=== PATIENT | female | born 1970 | race Caucasian/White ===

== ENCOUNTER 2019-09-27 11:32 | Emergency (ER) | payer SELFPAY ==
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
[2019-09-27] MEDS ORDERED: Iopamidol 755 Mg/ML 100 ML Bottle IVPUSH ONE (16:33)
== END 2019-09-27 14:53 | disposition home or self-care (01) ==
LOC: MW.ED 11:32
DX: S20.222A Contusion of left back wall of thorax, initial encounter (principal); S20.212A Contusion of left front wall of thorax, initial encounter; S90.31XA Contusion of right foot, initial encounter; V29.9XXA Motorcycle rider (driver) (passenger) injured in unspecified traffic accident, initial encounter
CPT/HCPCS: 71260; 72128; 73590; 73600; 73620; 99284; Q9967; 99283

== ENCOUNTER 2020-08-24 19:44 | Emergency (ER) | payer BC, OTHER ==
[2020-08-24] MEDS ORDERED: Sodium Chloride 0.9% 2.5 ML Syringe FLUSH PRN (19:55)
[2020-08-24] MEDS ORDERED: Sodium Chloride 0.9% 10 ML Syringe FLUSH PRN (19:55)
--- NOTE | 2020-08-24 19:55 | EDM.PDOC ---
ED HPI GENERAL MEDICAL PROBLEM - General Chief Complaint: General Stated Complaint: DIZZINESS, FATIGUE Time Seen by Provider: 08/24/20 19:54 Source of Information: Reports: Patient History Limitations: Reports: No Limitations - History of Present Illness INITIAL COMMENTS - FREE TEXT/NARRATIVE: HISTORY AND PHYSICAL: History of present illness: Patient is a 50-year-old female who presents to the emergency room with complaints of fatigue, left-sided "tingling" and dizziness. She states while at work around 6 PM she felt like she was "hit by a truck". She became very dizzy as if she were to pass out. She had the sensation of tingling to her distal extremities on the left side although did not have any weakness or loss of function. When she told a coworker about her dizziness she was informed that her pupils were "pinpoint". She also had fatigue associated with this. Patient denies any fever, chills, headache, change in vision, syncope or near syncope. Denies any chest pain, back pain, shortness of breath or cough. Denies any abdominal pain, nausea, vomiting, diarrhea, constipation or dysuria. Has not noted any blood in urine or stool. Patient has been eating and drinking appropriately. Review of systems: As per history of present illness and below otherwise all systems reviewed and negative. Past medical history: As per history of present illness and as reviewed below otherwise noncontributory. Surgical history: As per history of present illness and as reviewed below otherwise noncontributory. Social history: See social history for further information Family history: As per history of present illness and as reviewed below otherwise noncontributory. Physical exam: General: Well developed and well nourished. Alert and orientated x 3. Nontoxic in appearance and in no acute distress. Vital signs are stable and have been reviewed by me. Nursing notes were reviewed. HEENT: Atraumatic, normocephalic, pupils equal and reactive bilaterally, negative for conjunctival pallor or scleral icterus, mucous membranes moist, TMs normal bilaterally, throat clear, neck supple, nontender, trachea midline. No drooling or trismus noted. No meningeal signs. No hot potato voice noted. Lungs: Clear to auscultation bilaterally. No wheezes, rales, or rhonchi. Chest nontender. Normal work of breathing, no accessory muscles used. Heart: S1S2, regular rate and rhythm without overt murmur, gallops, or rubs. No JVD. No peripheral edema Abdomen: Soft, nondistended, nontender. Normoactive bowel sounds. Negative for masses or costovertebral tenderness. Pelvis: Stable nontender. Genitourinary/Rectal: Deferred. Skin: Intact, warm, dry. No lesions or rashes noted. Hematologic: No petechiae or purpra. Mucosa appropriate color and normal nail bed color and refill. Extremities: Atraumatic, moves all extremities per self without difficulty or deficits, negative for cords or calf pain. Neurovascular unremarkable. Neuro: Awake, alert, oriented. Cranial nerves II through XII unremarkable. Cerebellum unremarkable. Motor and sensory unremarkable throughout. Exam nonfocal. Psychiatric: Mood and affect are appropriate. Normal thought process. Answering questions appropriately. Notes: *This patient was seen and evaluated during the 2019 SARS-CoV-2 novel coronavirus pandemic period. Community viral transmission is ongoing at time of this encounter and the emergency department is operating under pandemic response procedures. NIH: 0, GCS: 15. My physical exam is unremarkable, she has no neurological symptoms. Denies any tingling sensation to the left side of her body at this time. I did have Dr Babin also evaluate the patient, he agrees with diagnostics. CT shows no acute intracranial findings. Lab work is unremarkable. She states she feels improved. States she just has mild headache with light sensitivity (typical with her headaches, does not rate this as unusual for her). She declines wanting any medications for this, stating she doesn't like to take medications. VSS. NIH: 0, GCS: 15. I have talked with the patient about today's findings, in addition to providing specific details for plan of care. Reassessment at the time of disposition demonstrates that the patient is in no acute distress. The patient is stable for discharge, counseling was provided and we discussed in great detail signs and symptoms that would prompt them to return to the Emergency Department. Medication, follow up and supportive care measures were reviewed and discussed. Voices understanding and is agreeable to plan of care. Denies any further questions or concerns at this time. Diagnostics: CBC, CMP, Troponin, EKG, CXR, Therapeutics: IV fluids Prescription: None Impression: Dizziness Plan: 1. You were evaluated today on an emergent basis. Your lab work is unremarkable. Head CT is normal. Rest and drink plenty of fluids. 2. You can alternate Tylenol and ibuprofen as needed for pain and fever management. 3. We encourage you to follow up with your primary care provider and/or recommended specialist in the next few days for re-evaluation and further care/management. 4. If your symptoms should worsen, new symptoms develop or any of the signs and symptoms we discussed should arise please return to the emergency room or call 911 (if needed). Definitive disposition and diagnosis as appropriate pending reevaluation and review of above. - Related Data Allergies Allergy/AdvReac Type Severity Reaction Status Date / Time No Known Allergies Allergy Verified 08/24/20 20:04 Home Meds: Home Meds . [No Known Home Meds] 08/24/20 [History] Past Medical History - Infectious Disease History Infectious Disease History: Reports: None - Past Surgical History GI Surgical History: Reports: Cholecystectomy Female Surgical History: Reports: Hysterectomy Social & Family History - Family History Family Medical History: No Pertinent Family History - Caffeine Use Caffeine Use: Reports: None ED ROS GENERAL - Review of Systems Review Of Systems: Comprehensive ROS is negative, except as noted in HPI. ED EXAM, GENERAL - Physical Exam Exam: See Below (See dictation) Course - Vital Signs Last Recorded V/S: Last Vital Signs Temp 96.7 F L 08/24/20 20:05 Pulse 86 08/24/20 20:05 Resp 18 08/24/20 20:05 BP 163/91 H 08/24/20 20:05 Pulse Ox 97 08/24/20 20:05 - Orders/Labs/Meds Orders: Active Orders 24 hr Category Date Time Status EKG Documentation Completion [RC] STAT Care 08/24/20 19:55 Active UA RFX SANDY AND CULT IF INDIC [URIN] Stat Lab 08/24/20 21:39 Received Sodium Chloride 0.9% [Normal Saline] 1,000 ml Med 08/24/20 21:07 Active IV STAT Sodium Chloride 0.9% [Saline Flush] Med 08/24/20 19:55 Active 10 ml FLUSH ASDIRECTED PRN Sodium Chloride 0.9% [Saline Flush] Med 08/24/20 19:55 Active 2.5 ml FLUSH ASDIRECTED PRN Saline Lock Insert [OM.PC] Stat Oth 08/24/20 19:55 Ordered Medication Orders Sodium Chloride (Normal Saline) 1,000 mls @ 999 mls/hr IV STAT ONE Stop: 08/24/20 22:07 Last Admin: 08/24/20 21:11 Dose: 999 mls/hr Documented by: TOÑO Sodium Chloride (Sodium Chloride 0.9% 10 Ml Syringe) 10 ml FLUSH ASDIRECTED PRN PRN Reason: Keep Vein Open Last Admin: 08/24/20 21:11 Dose: 10 ml Documented by: TOÑO Sodium Chloride (Sodium Chloride 0.9% 2.5 Ml Syringe) 2.5 ml FLUSH ASDIRECTED PRN PRN Reason: Keep Vein Open Last Admin: 08/24/20 21:11 Dose: 2.5 ml Documented by: TOÑO Labs: Laboratory Tests 08/24/20 08/24/20 08/24/20 Range/Units 20:17 20:17 20:17 WBC 8.08 (4.0-11.0) K/uL RBC 4.68 (4.30-5.90) M/uL Hgb 14.5 (12.0-16.0) g/dL Hct 44.3 (36.0-46.0) % MCV 94.7 (80.0-98.0) fL MCH 31.0 (27.0-32.0) pg MCHC 32.7 (31.0-37.0) g/dL RDW Std Deviation 48.5 (28.0-62.0) fl RDW Coeff of Inez 14 (11.0-15.0) % Plt Count 269 (150-400) K/uL MPV 9.80 (7.40-12.00) fL Neut % (Auto) 58.6 (48.0-80.0) % Lymph % (Auto) 32.4 (16.0-40.0) % [place] % (Auto) 7.7 (0.0-15.0) % Eos % (Auto) 1.1 (0.0-7.0) % Baso % (Auto) 0.2 (0.0-1.5) % Neut # (Auto) 4.7 (1.4-5.7) K/uL Lymph # (Auto) 2.6 H (0.6-2.4) K/uL [place] # (Auto) 0.6 (0.0-0.8) K/uL Eos # (Auto) 0.1 (0.0-0.7) K/uL Baso # (Auto) 0.0 (0.0-0.1) K/uL Nucleated RBC % 0.0 /100WBC Nucleated RBCs # 0 K/uL Sodium 138 (136-145) mmol/L Potassium 3.8 (3.5-5.1) mmol/L Chloride 103 (98-107) mmol/L Carbon Dioxide 25.3 (21.0-32.0) mmol/L BUN 14 (7.0-18.0) mg/dL Creatinine 0.9 (0.6-1.0) mg/dL Est Cr Clr Drug Dosing 75.44 mL/min Estimated GFR (MDRD) > 60.0 ml/min Glucose 108 H (74-106) mg/dL Calcium 9.1 (8.5-10.1) mg/dL Total Bilirubin 0.6 (0.2-1.0) mg/dL AST 23 (15-37) IU/L ALT 56 (14-63) IU/L Alkaline Phosphatase 124 H (46-116) U/L Troponin I < 0.050 (0.000-0.056) ng/mL Total Protein 7.6 (6.4-8.2) g/dL Albumin 3.5 (3.4-5.0) g/dL Globulin 4.1 H (2.6-4.0) g/dL Albumin/Globulin Ratio 0.9 (0.9-1.6) Meds: Medications Generic Name Dose Route Start Last Admin Trade Name Freq PRN Reason Stop Dose Admin Sodium Chloride 1,000 mls @ 999 mls/hr 08/24/20 21:07 08/24/20 21:11 Normal Saline IV 08/24/20 22:07 999 mls/hr STAT ONE Administration Sodium Chloride 10 ml 08/24/20 19:55 08/24/20 21:11 Sodium Chloride 0.9% 10 Ml Syringe FLUSH 10 ml ASDIRECTED PRN Administration Keep Vein Open Sodium Chloride 2.5 ml 08/24/20 19:55 08/24/20 21:11 Sodium Chloride 0.9% 2.5 Ml Syringe FLUSH 2.5 ml ASDIRECTED PRN Administration Keep Vein Open Departure - Departure Time of Disposition: 21:58 Disposition: Home, Self-Care 01 Clinical Impression: Dizziness - Discharge Information Instructions: Dizziness, [id number] Referrals: PCP,None [Primary Care Provider] - Forms: ED Department Discharge Additional Instructions: The following information is given to patients seen in the emergency department who are being discharged to home. This information is to outline your options for follow-up care. We provide all patients seen in our emergency department with a follow-up referral. The need for follow-up, as well as the timing and circumstances, are variable depending upon the specifics of your emergency department visit. If you don't have a primary care physician on staff, we will provide you with a referral. We always advise you to contact your personal physician following an emergency department visit to inform them of the circumstance of the visit and for follow-up with them and/or the need for any referrals to a consulting specialist. The emergency department will also refer you to a specialist when appropriate. This referral assures that you have the opportunity for follow-up care with a specialist. All of these measure are taken in an effort to provide you with optimal care, which includes your follow-up. Under all circumstances we always encourage you to contact your private physician who remains a resource for coordinating your care. When calling for follow-up care, please make the office aware that this follow-up is from your recent emergency room visit. If for any reason you are refused follow-up, please contact the [facility] Emergency Department at and asked to speak to the emergency department charge nurse. [facility] [address] [place] [id number] [address] [id number] Thank you for choosing the [facility] emergency department in [place] for your medical needs today. It was a pleasure caring for you. Today you were seen in the emergency department for dizziness and headache. 1. You were evaluated today on an emergent basis. Your lab work is unremarkable. Head CT is normal. Rest and drink plenty of fluids. 2. You can alternate Tylenol and ibuprofen as needed for pain and fever management. 3. We encourage you to follow up with your primary care provider and/or recommended specialist in the next few days for re-evaluation and further care/management. 4. If your symptoms should worsen, new symptoms develop or any of the signs and symptoms we discussed should arise please return to the emergency room or call 911 (if needed). Sepsis Event Note (ED) - Focused Exam Vital Signs: Vital Signs Temp Pulse Resp BP Pulse Ox 08/24/20 20:05 96.7 F L 86 18 163/91 H 97 - My Orders Last 24 Hours: My Active Orders 08/24/20 19:55 EKG Documentation Completion [RC] STAT Sodium Chloride 0.9% [Saline Flush] 10 ml FLUSH ASDIRECTED PRN Sodium Chloride 0.9% [Saline Flush] 2.5 ml FLUSH ASDIRECTED PRN Saline Lock Insert [OM.PC] Stat 08/24/20 21:07 Sodium Chloride 0.9% [Normal Saline] 1,000 ml IV STAT 08/24/20 21:39 UA RFX SANDY AND CULT IF INDIC [URIN] Stat - Assessment/Plan Last 24 Hours: My Active Orders 08/24/20 19:55 EKG Documentation Completion [RC] STAT Sodium Chloride 0.9% [Saline Flush] 10 ml FLUSH ASDIRECTED PRN Sodium Chloride 0.9% [Saline Flush] 2.5 ml FLUSH ASDIRECTED PRN Saline Lock Insert [OM.PC] Stat 08/24/20 21:07 Sodium Chloride 0.9% [Normal Saline] 1,000 ml IV STAT 08/24/20 21:39 UA RFX SANDY AND CULT IF INDIC [URIN] Stat
[2020-08-24 20:48] LABS: BLOOD UREA NITROGEN,BUN 14 mg/dL (7.0-18.0); CARBON DIOXIDE,CO2 25.3 mmol/L (21.0-32.0); CHLORIDE,CL 103 mmol/L (98-107); GLUCOSE RANDOM 108 mg/dL (74-106); POTASSIUM,K 3.8 mmol/L (3.5-5.1); SODIUM,NA 138 mmol/L (136-145)
--- NOTE | 2020-08-24 21:03 | CT ---
INDICATION: Pain. COMPARISON: None. TECHNIQUE: CT of the head without IV contrast. Coronal and sagittal reconstructions are provided. FINDINGS: There is a small faint curvilinear hyperdensity within the left basal ganglia of uncertain significance, possibly artifactual versus physiologic calcification (series 201, image 16). This does not have the typical appearance of a hemorrhage. No mass effect or midline shift. No other intracranial hemorrhage identified. No abnormal extra-axial fluid collections. No evidence of acute infarct. Normal caliber ventricular system. Orbits and extraocular muscles are symmetric. Paranasal sinuses and mastoid air cells are clear. No acute fracture. Soft tissues are unremarkable. IMPRESSION: : 1. No acute intracranial findings. 2. Small faint curvilinear hyperdensity in the left basal ganglia is favored to be artifactual or physiologic. Please note that all CT scans at this facility use dose modulation, iterative reconstruction, and/or weight-based dosing when appropriate to reduce radiation dose to as low as reasonably achievable. Dictated by Bailee Plascencia MD @ Aug 24 2020 8:54PM Signed by Dr. Bailee Plascencia @ Aug 24 2020 9:02PM
[2020-08-24] MEDS ORDERED: Sodium Chloride 0.9% 1,000 ML IV ONE (21:07)
--- NOTE | 2020-08-24 21:29 | PCM.SN.2 ---
- Free Text/Narrative Note: EKG: As interpreted by ER physician: Talya: Nonspecific ST-T wave abnormalities Normal axis No evidence of ST elevation MO Normal sinus rhythm heart rate of 92
== END 2020-08-24 22:16 | disposition home or self-care (01) ==
LOC: MW.ED 19:44
DX: R42 Dizziness and giddiness (principal)
CPT/HCPCS: 36415; 70450; 80053; 81003; 84484; 85025; 93005; 99284; J7030; 93010; 99283

== ENCOUNTER 2021-11-22 21:33 | Emergency (ER) | payer SELFPAY ==
[2021-11-22] MEDS ORDERED: Sodium Chloride 0.9% 10 ML Syringe FLUSH PRN (21:49)
[2021-11-22] MEDS ORDERED: Sodium Chloride 0.9% 2.5 ML Syringe FLUSH PRN (21:49)
[2021-11-22] MEDS ORDERED: Iopamidol 755 MG/ML 500 ML Multipack Bottle IVPUSH STA (22:16)
[2021-11-22 22:57] LABS: CARBON DIOXIDE,CO2 23.6 mmol/L (21.0-32.0); POTASSIUM,K 3.5 mmol/L (3.5-5.1)
== END 2021-11-23 01:05 | disposition left against medical advice (07) ==
LOC: MW.ED 21:33
DX: G45.9 Transient cerebral ischemic attack, unspecified (principal); Z90.710 Acquired absence of both cervix and uterus; Z20.822 Contact with and (suspected) exposure to COVID-19
CPT/HCPCS: 36415; 70450; 70496; 70498; 71045; 80053; 80305; 84443; 84484; 85025; 85610; 87635; 93005; 99284; J3490; Q9967; 93010; 99285; U0002

== ENCOUNTER 2022-10-26 00:41 | Emergency (ER) | payer BC ==
[2022-10-26] MEDS ORDERED: Lactated Ringers 1,000 ML IV ONE (01:44)
[2022-10-26] MEDS ORDERED: hydrOXYzine HCl 25 MG Tab PO ONE (01:44)
[2022-10-26 01:55] LABS: BASOPHILS PERCENT AUTO 0.2 % (0.0-1.5); EOSINOPHILS ABSOLUTE AUTO 0.1 K/uL (0.0-0.7); EOSINOPHILS PERCENT AUTO 0.7 % (0.0-7.0); HEMATOCRIT 45.6 % (36.0-46.0); HEMOGLOBIN 15.2 g/dL (12.0-16.0); LYMPHOCYTES ABSOLUTE AUTO 3.3 K/uL (0.6-2.4); LYMPHOCYTES PERCENT AUTO 35.6 % (16.0-40.0); MEAN CORPUSCULAR HEMOGLOBIN 30.5 pg (27.0-32.0); MEAN CORPUSCULAR HGB CONC 33.3 g/dL (31.0-37.0); MEAN CORPUSCULAR VOLUME 91.6 fL (80.0-98.0); MONOCYTES ABSOLUTE AUTO 0.7 K/uL (0.0-0.8); NEUTROPHILS ABSOLUTE AUTO 5.2 K/uL (1.4-5.7); NEUTROPHILS PERCENT AUTO 56.5 % (48.0-80.0); NRBC ABSOLUTE 0 K/uL; PLATELET COUNT,PLT 255 K/uL (150-400); RED BLOOD CELL COUNT 4.98 M/uL (4.30-5.90); WHITE BLOOD CELL COUNT,WBC 9.22 K/uL (4.0-11.0)
[2022-10-26 02:12] LABS: A/G RATIO 0.9 (0.9-1.6); ALBUMIN 3.8 g/dL (3.4-5.0); BILIRUBIN TOTAL 0.4 mg/dL (0.2-1.0); CALCIUM 9.2 mg/dL (8.5-10.1); CARBON DIOXIDE,CO2 20.7 mmol/L (21.0-32.0); CREATININE 0.9 mg/dL (0.6-1.0); EST CRCL DRUG DOSING (CG) 73.76 mL/min; POTASSIUM,K 3.4 mmol/L (3.5-5.1); PROTEIN TOTAL,TP 7.8 g/dL (6.4-8.2); TSH ULTRASENSITIVE 2.97 uIU/mL (0.36-3.74)
== END 2022-10-26 04:41 | disposition home or self-care (01) ==
LOC: MW.ED 00:41
DX: R00.2 Palpitations (principal)
CPT/HCPCS: 36415; 71045; 80053; 84443; 84484; 85025; 93005; 99285; A9270; J7120; 93010; 99283

== ENCOUNTER 2024-09-08 22:55 | Emergency (ER) | payer BC, OTHER ==
[2024-09-08] MEDS ORDERED: Sodium Chloride 0.9% 10 ML Syringe FLUSH PRN (22:59)
[2024-09-08] MEDS ORDERED: Sodium Chloride 0.9% 2.5 ML Syringe FLUSH PRN (22:59)
[2024-09-08] MEDS: Ondansetron 4 MG/2 ML SDV ONE (23:07)
[2024-09-08] MEDS: Ondansetron 4 MG/2 ML SDV IVPUSH ONE (23:08)
[2024-09-08 23:09] LABS: BASOPHILS ABSOLUTE AUTO 0.04 K/uL (0.00-0.20); BASOPHILS PERCENT AUTO 0.4 % (0.0-1.0); EOSINOPHILS ABSOLUTE AUTO 0.15 K/uL (0.00-0.45); EOSINOPHILS PERCENT AUTO 1.3 % (0.0-6.0); HEMATOCRIT 44.1 % (37.0-47.0); HEMOGLOBIN 14.9 g/dL (12.0-16.0); IMMATURE GRAN ABSOLUTE AUTO 0.03 K/uL (0.00-0.05); IMMATURE GRAN PERCENT AUTO 0.3 % (0.0-0.4); LYMPHOCYTES ABSOLUTE AUTO 4.65 K/uL (1.00-4.80); LYMPHOCYTES PERCENT AUTO 41.7 % (24.0-44.0); MEAN CORPUSCULAR HEMOGLOBIN 30.2 pg (28.0-32.0); MEAN CORPUSCULAR HGB CONC 33.8 g/dL (32.0-36.0); MEAN CORPUSCULAR VOLUME 89.5 fL (83.0-99.0); MONOCYTES ABSOLUTE AUTO 0.77 K/uL (0.00-0.80); MONOCYTES PERCENT AUTO 6.9 % (0.0-8.0); NEUTROPHILS ABSOLUTE AUTO 5.52 K/uL (1.80-7.70); NEUTROPHILS PERCENT AUTO 49.4 % (41.0-71.0); PLATELET COUNT,PLT 279 K/uL (150-400); RED BLOOD CELL COUNT 4.93 M/uL (4.10-5.30); WHITE BLOOD CELL COUNT,WBC 11.16 K/uL (3.9-11.3)
[2024-09-08] MEDS: Aspirin 81 MG Tab.Chew PO ONE (23:14)
[2024-09-08 23:21] LABS: INR 1.01 (0.86-1.11)
[2024-09-08 23:54] LABS: A/G RATIO 0.9 (0.9-1.6); ALBUMIN 3.6 g/dL (3.4-5.0); BILIRUBIN TOTAL 0.6 mg/dL (0.2-1.0); CALCIUM 9.4 mg/dL (8.5-10.1); CARBON DIOXIDE,CO2 24.4 mmol/L (21.0-32.0); EST CRCL DRUG DOSING (CG) 64.88 mL/min; PROTEIN TOTAL,TP 7.4 g/dL (6.4-8.2); TSH ULTRASENSITIVE 2.65 uIU/mL (0.36-3.74)
[2024-09-09] MEDS ORDERED: Naloxone 0.4 MG/ML SDV IVPUSH PRN (00:11)
[2024-09-09] MEDS: Morphine 2 MG/ML SYRINGE IVPUSH ONE (00:23)
[2024-09-09] MEDS: Heparin Sodium 5,000 Units/ML Vial IVPUSH ONE (00:32)
[2024-09-09] MEDS: Heparin Sodium/0.45% NaCl 25,000 UNITS/250 ML BAG IV SCH (00:34)
[2024-09-09] MEDS: atorvaSTATin 40 MG Tab PO ONE (01:03)
[2024-09-09 01:27] LABS: AMPHETAMINES SCREEN, URINE NEGATIVE (CUTOFF=500); BARBITURATE SCREEN,URINE NEGATIVE (CUTOFF=200); BENZODIAZEPINES SCREEN,URINE NEGATIVE (CUTOFF=150); BUPRENORPHINE SCREEN,URINE NEGATIVE (CUTOFF=10); METHADONE SCREEN, URINE NEGATIVE (CUTOFF=200); METHAMPHETAMINES SCREEN, URINE NEGATIVE (CUTOFF=500); OXYCODONE SCREEN,URINE NEGATIVE (CUT0FF=100); PCP SCREEN,URINE NEGATIVE (CUTOFF=25); THC SCREEN,URINE 20 NG/ML NEGATIVE (CUTOFF=50)
== END 2024-09-09 02:15 ==
LOC: MW.ED 22:55
DX: I11.9 Hypertensive heart disease without heart failure (principal); I21.4 Non-ST elevation (NSTEMI) myocardial infarction; Z90.710 Acquired absence of both cervix and uterus
CPT/HCPCS: 36415; 71045; 80053; 80305; 83690; 84443; 84484; 85025; 85610; 85730; 93005; 96365; 96366; 96375; 99285; A9270; J1644; J2270; J2405; 99283